=== PATIENT | male | born 1985 | race Hispanic/Latino ===

== ENCOUNTER 2024-07-09 12:15 | Emergency (ER) | payer SELFPAY ==
[~2024-07-09] VITALS: Ht 157.5 cm; Wt 77.1 kg
[2024-07-09 12:48] LABS: CREATININE 0.7 mg/dL (0.5-1.3)
[2024-07-09] MEDS: NITROGLYCERIN 0.4 MG SL TAB SL PRN (12:48)
[2024-07-09] MEDS: ASPIRIN 325MG TAB PO ONE (12:49)
[2024-07-09 12:58] LABS: MAGNESIUM 1.9 mg/dL (1.80-2.40)
[2024-07-09 14:02] LABS: APPEARANCE,URINE CLEAR (CLEAR); BILIRUBIN,URINE NEGATIVE (NEGATIVE); COLOR,URINE LIGHT-YELLOW (YELLOW); GLUCOSE, URINE (UA) NEGATIVE (NEGATIVE); KETONES,URINE 40 mg/dL (NEGATIVE); LEUKOCYTE ESTERASE ,URINE NEGATIVE Leu/uL (NEGATIVE); NITRATE,URINE NEGATIVE (NEGATIVE); OCCULT BLOOD,URINE NEGATIVE (NEGATIVE); PROTEIN,URINE NEGATIVE (NEGATIVE); UROBILINOGEN,URINE 0.2 mg/dL (0.2-1.0)
[2024-07-09 14:08] LABS: AMPHET/METH SCREEN,URINE NEGATIVE (NEGATIVE); BARBITURATE SCREEN, URINE NEGATIVE (NEGATIVE); BENZODIAZEPINES SCREEN,URINE NEGATIVE (NEGATIVE); CANNABINOID SCREEN,URINE NEGATIVE (NEGATIVE); COCAINE SCREEN,URINE NEGATIVE (NEGATIVE); OPIATE SCREEN,URINE NEGATIVE (NEGATIVE); PHENCYCLIDINE SCREEN,URINE NEGATIVE (NEGATIVE)
[2024-07-09 14:16] LABS: BASOPHILS # (AUTO) 0.03 K/uL (0.00-0.20); BASOPHILS % (AUTO) 0.4 % (0.0-5.0); EOSINOPHILS # (AUTO) 0.12 K/uL (0.00-0.70); EOSINOPHILS % (AUTO) 1.7 % (0.0-8.0); HEMATOCRIT 38.6 % (42-54); IMMATURE GRANULOCYTE ABSOLUTE 0.02 K/uL (0-1); LYMPHOCYTES # (AUTO) 2.4 K/uL (1.0-4.8); LYMPHOCYTES % (AUTO) 34.9 % (21.0-51.0); MEAN CORPUSCULAR VOLUME 82.5 fL (79-99); MONOCYTES # (AUTO) 0.4 K/uL (0.1-1.0); MONOCYTES % (AUTO) 5.7 % (3.0-13.0); PLATELET COUNT (AUTO) 230 K/uL (130-400); RED BLOOD CELL COUNT(AUTO) 4.68 MIL/uL (4.50-6.20); RED CELL DISTRIBUTION WIDTH 14.2 % (11.0-15.5)
[2024-07-09 14:24] LABS: MEAN CORPUSCULAR HEMOGLOBIN 29.1 pg (27.0-33.0)
[2024-07-09 14:25] LABS: MEAN CORPUSCULAR HGB CONC 35.1 g/dL (32.0-36.0)
[2024-07-09 14:30] LABS: ADD UA MICROSCOPIC YES
[2024-07-09 14:31] LABS: BACTERIA,URINE RARE /HPF (None Seen); MUCUS,URINE RARE LPF (None Seen); RBC,URINE 0-1 /HPF (0-1); SQUAMOUS EPITHELIAL CELL,UR RARE /HPF (0-2); WBC,URINE 0-1 /HPF (0-1)
[2024-07-09 16:07] VITALS: BP 136/78; PULSE 78; RESP 18; O2SAT 98
== END 2024-07-09 16:08 | disposition home or self-care (01) ==
LOC: EDH 12:15
DX: M94.0 Chondrocostal junction syndrome [Tietze] (principal); E11.65 Type 2 diabetes mellitus with hyperglycemia
CPT/HCPCS: 36415; 71045; 80048; 80305; 81001; 82550; 83735; 84484; 85025; 93005